=== PATIENT | female | born 1975 | race Caucasian/White ===

== ENCOUNTER → 2024-06-24 | Outpatient (CLI) | payer BC ==
[~2024-06-24] MED LIST: HYDACE5 PO; [UNRECOGNIZED DRUG - OTHER]
[2024-07-01 06:44] LABS: HPV HIGH RISK BY TMA Not Detected; HPV SOURCE Cervical
== END ==
LOC: LAB SHORT 16:30 → LAB 16:30
PROVIDERS: Family Medicine
DX: Z01.419 Encounter for gynecological examination (general) (routine) without abnormal findings (principal)
CPT/HCPCS: 87624; G0123